=== PATIENT | male | born 1995 | race Caucasian/White ===

== ENCOUNTER 2017-03-13 09:38 | Observation (INO) | payer OTHER ==
[2017-03-13 11:06] LABS: HEMOGLOBIN 16.2 gm/dl (14.0-17.5); RED BLOOD COUNT 5.24 M/UL (4.20-5.50); WHITE BLOOD COUNT 9.1 K/UL (4.5-11.0)
[2017-03-13 11:27] LABS: BUN/CREATININE RATIO 15 (0-10)
[2017-03-13 11:56] LABS: ADENOVIRUS F 40/41 Not Detected (Negative); ASTROVIRUS Not Detected (Negative); CLOSTRIDIUM DIFFICILE TOX A/B Not Detected (Negative); CRYPTOSPORIDIUM Not Detected (Negative); E.COLI 0157 Not Detected (Negative); ENTAMOEBA HISTOLYTICA Not Detected (Negative); ENTEROAGGREGATIVE E.COLI (EAEC Not Detected (Negative); ENTEROPATHOGENIC E.COLI (EPEC) Not Detected (Negative); ENTEROTOXIGENIC E.COLI (ETEC) Not Detected (Negative); GIARDIA LAMBLIA Not Detected (Negative); NOROVIRUS GI/GII Not Detected (Negative); PLESIOMONAS SHIGELLOIDES Not Detected (Negative); ROTOVIRUS A Not Detected (Negative); SALMONELLA Not Detected (Negative); SAPOVIRUS Not Detected (Negative); SHIGA-LIK TOX.PRO.E.COLI (STEC Not Detected (Negative); VIBRIO Not Detected (Negative); VIBRIO CHOLERAE Not Detected (Negative); YERSINIA ENTEROCOLITICA Not Detected (Negative)
[2017-03-13 14:15] LABS: CAMPYLOBACTER DETECTED (Negative); SHIG/ENTEROINVAS.ECOLI (EIEC) DETECTED (Negative)
[2017-03-13 18:39] LABS: ADENOVIRUS F 40/41 Not Detected (Negative); ASTROVIRUS Not Detected (Negative); CLOSTRIDIUM DIFFICILE TOX A/B Not Detected (Negative); CRYPTOSPORIDIUM Not Detected (Negative); E.COLI 0157 Not Detected (Negative); ENTAMOEBA HISTOLYTICA Not Detected (Negative); ENTEROAGGREGATIVE E.COLI (EAEC Not Detected (Negative); ENTEROPATHOGENIC E.COLI (EPEC) Not Detected (Negative); ENTEROTOXIGENIC E.COLI (ETEC) Not Detected (Negative); GIARDIA LAMBLIA Not Detected (Negative); NOROVIRUS GI/GII Not Detected (Negative); PLESIOMONAS SHIGELLOIDES Not Detected (Negative); ROTOVIRUS A Not Detected (Negative); SALMONELLA Not Detected (Negative); SAPOVIRUS Not Detected (Negative); SHIG/ENTEROINVAS.ECOLI (EIEC) Not Detected (Negative); SHIGA-LIK TOX.PRO.E.COLI (STEC Not Detected (Negative); VIBRIO Not Detected (Negative); VIBRIO CHOLERAE Not Detected (Negative); YERSINIA ENTEROCOLITICA Not Detected (Negative)
[2017-03-14 04:53] LABS: HEMOGLOBIN 14.1 gm/dl (14.0-17.5); RED BLOOD COUNT 4.69 M/UL (4.20-5.50); WHITE BLOOD COUNT 7.3 K/UL (4.5-11.0)
[2017-03-14 05:32] LABS: BUN/CREATININE RATIO 11 (0-10)
[2017-03-14 08:33] LABS: CAMPYLOBACTER DETECTED (Negative)
[2017-03-15 04:04] LABS: HEMOGLOBIN 13.6 gm/dl (14.0-17.5); RED BLOOD COUNT 4.53 M/UL (4.20-5.50); WHITE BLOOD COUNT 7.6 K/UL (4.5-11.0)
[2017-03-15 04:20] LABS: BUN/CREATININE RATIO 10 (0-10)
[2017-03-15] MEDS ORDERED: LEVAQUIN500 MG PO (14:17)
== END 2017-03-15 13:07 | disposition home or self-care (01) ==
LOC: ER1 09:38 → MED SURG 4 15:15 → M/S 15:15 → MED SURG 4 18:05
PROVIDERS: Physician Assistant; ADMIT Internal Medicine Infectious Disease
DX: A04.5 Campylobacter enteritis (principal); A04.4 Other intestinal Escherichia coli infections; K62.5 Hemorrhage of anus and rectum; E66.9 Obesity, unspecified; Z72.89 Other problems related to lifestyle
CPT/HCPCS: 36415; 80048; 80053; 81001; 82270; 85025; 85027; 87507; 89055; 96365; 96372; 96375; 96376; 99284; G0378; J0500; J0696; J2270; J2405; J7030; J7050; Q9962

== ENCOUNTER 2021-06-04 18:56 | Emergency (ER) | payer OTHER ==
[~2021-06-04 18:56] MED LIST: AUGMENTIN 875-1 EACH PO; CLARITIN10 MG PO; FLONASE 0.05% N16 GM; LEVAQUIN500 MG PO
[2021-06-04 20:03] LABS: HEMOGLOBIN 16.5 gm/dl (14.0-17.5); RED BLOOD COUNT 5.34 M/UL (4.20-5.50)
[2021-06-04 20:28] LABS: BUN/CREATININE RATIO 12 (0-10)
[2021-06-04] MEDS ORDERED: CIPRO500 MG PO (22:15)
[2021-06-04] MEDS ORDERED: FLAGYL500 MG PO (22:15)
== END 2021-06-04 22:40 | disposition home or self-care (01) ==
LOC: ER1 18:56
PROVIDERS: Physician Assistant
DX: R19.7 Diarrhea, unspecified (principal); R74.01 Elevation of levels of liver transaminase levels
CPT/HCPCS: 80053; 82270; 85025; 85610; 85730; 99284